=== PATIENT | male | born 2000 | race Two or more races ===

== ENCOUNTER 2022-08-27 16:23 | Emergency (ER) | payer MEDICAID ==
[~2022-08-27] VITALS: Ht 170.2 cm; Wt 63.5 kg
[2022-08-27] MEDS ORDERED: TDAP [DIPH/PERTUSSIS/TET] 0.5 ML VIAL IM ONE ×2 (18:13→18:30)
--- NOTE | 2022-08-27 18:20 | NUR ---
PT REFUSING XRAY AT THIS TIME AND REQUESTING TO LEAVE. [facility]ES[facility] CONCEPCION MADE AWARE
[2022-08-27] MEDS ORDERED: AMOX-430 PO (18:22)
[2022-08-27 18:33] VITALS: BP 128/77
== END 2022-08-27 18:33 | disposition home or self-care (01) ==
LOC: ER 16:33
DX: S51.831A Puncture wound without foreign body of right forearm, initial encounter (principal); W54.0XXA Bitten by dog, initial encounter; Y93.89 Activity, other specified; Y92.89 Other specified places as the place of occurrence of the external cause; Y99.8 Other external cause status
CPT/HCPCS: 99283; 90471; 90715; A6403